=== PATIENT | female | born 1990 | race Caucasian/White ===

== ENCOUNTER → 2024-11-14 11:47 | Outpatient (CLI) | payer OTHER, SELFPAY ==
--- NOTE | 2024-11-14 11:49 | DI.US.S_ITS ---
PROCEDURE: US OB >= 14 WEEKS FETUS INDICATIONS: Anatomy US OUTSIDE/PRIOR DATING DATA: Last menstrual period (LMP): 07/04/24. LMP-based estimated date of delivery (JAYSHREE): 04/10/25. First dating scan (date and location): This study. Estimated date of delivery (JAYSHREE) from first dating scan: 04/15/25. The calculations are made using the most accurate JAYSHREE of 04/15/25. TECHNIQUE: Real-time scanning was performed of the fetus, with image documentation and biometric measurements. Endovaginal scanning: Not needed COMPARISON: None. FINDINGS: General: A single living intrauterine gestation is present. Presentation: Transverse head right. Placenta: Placental position is fundal , without previa. Amniotic fluid index: 11.4 cm, normal range is 5-24 cm. Single deepest vertical pocket is 3.8 cm. heart rate: 130 beats per minute. Maternal cervical canal: 3.8 cm long. Normal lower limit is 2.5 cm. biometrics: Biparietal diameter: 4.0 cm, 18 weeks 1 day Head circumference: 14.9 cm, 18 weeks 0 days Abdominal circumference: 12.4 cm, 18 weeks 0 days Femur length: 2.8 cm, 18 weeks 5 days Clinically estimated gestational age: 19 weeks 0 days Composite gestational age from present scan: 18 weeks 2 days Estimated weight and percentile: 233 g, 13th percentile Anatomic survey: Neuro: Ventricles are non-dilated at less than 10 mm. Cisterna magna is normal at 3-11 mm. Cerebellum is normal in size and morphology. Nuchal skin fold: Normal at less than 6 mm between 14-21 weeks gestational age. Face: Nose and lips, facial profile are normal. Spine: No evidence for spina bifida. Heart: 4-chambered heart is present, with normal ventricular outflow tracts. Diaphragm: Diaphragm is intact. Stomach: Left-sided stomach is present. Kidneys: No hydronephrosis. Normal is less than 5 mm in 2nd trimester, less than 7 mm in 3rd trimester. Cord: 3-vessel cord has orthotopic insertion. Bladder: Normal in size. Extremities: All 4 extremities identified. IMPRESSION: Single living intrauterine gestation with delivery date projected to be centered on 04/15/25. No anomaly seen. positioning currently is transverse, head right. Placental positioning is fundal and the amniotic fluid volume is normal. We strive to produce accurate, complete, and clear reports of imaging services. To assist us in improving patient care, this report was composed using standard report templates and voice recognition software. Therefore, it may contain abnormal punctuation, insertions and/or omissions. Occasional wrong-word or sound-alike substitutions may occur. Though we review the report and make efforts to correct it, we do recommend that the report be read carefully in proper context to recognize any text inaccuracies. Dictated by: Trino Limon M.D. on 11/15/2024 at 10:51 Approved by: Trino Limon M.D. on 11/15/2024 at 10:55
== END ==
LOC: US 11:48
PROVIDERS: Referring Provider Family Medicine; Visit Provider Family Medicine
DX: Z36.89 Encounter for other specified antenatal screening (principal); Z3A.18 18 weeks gestation of pregnancy
CPT/HCPCS: 76811

== ENCOUNTER → 2024-12-20 11:41 | Outpatient (CLI) | payer OTHER, SELFPAY ==
[2024-12-20 13:35] LABS: Hematocrit 30.0 % (36-46); Hemoglobin 10.6 g/dL (12.0-16.0); Mean Corpuscular HGB Conc 35.3 % (30-36); Mean Corpuscular Hemoglobin 31.0 PG (26-34); Mean Corpuscular Volume 87.8 fL (80-100); Platelet Count 200 X10^3/uL (150-400)
[2024-12-20 13:52] LABS: GTT (PREG) 1 Hour PP 50gm Dose 114 mg/dL (76-139)
== END ==
PROVIDERS: Referring Provider Family Medicine; Visit Provider Family Medicine
DX: Z34.80 Encounter for supervision of other normal pregnancy, unspecified trimester (principal)
CPT/HCPCS: 82950; 85027

== ENCOUNTER → 2025-01-29 16:47 | Outpatient (CLI) | payer OTHER, SELFPAY ==
--- NOTE | 2025-01-29 16:48 | DI.US.S_ITS ---
PROCEDURE: US OB LIMITED INDICATIONS: growth OUTSIDE/PRIOR DATING DATA: The calculations are made using the working JAYSHREE of 04/10/2025. TECHNIQUE: Real-time scanning was performed of the fetus, with image documentation and biometric measurements. Endovaginal scanning: Not performed COMPARISON: [facility], , OB >= 14 WEEKS FETUS, 11/14/2024, 12:14. FINDINGS: General: A single living intrauterine gestation is present. Presentation: Transverse. Placenta: Placental position is anterior/fundal , without previa. Amniotic fluid index: 23.8 cm, normal range is 5-24 cm. Single deepest vertical pocket is 6.8 cm. heart rate: 140 beats per minute. Maternal cervical canal: 4.2 cm long. Normal lower limit is 2.5 cm. biometrics: Biparietal diameter: 7.6 cm, 30 weeks 2 days Head circumference: 26.7 cm, 29 weeks 1 day Abdominal circumference: 24.2 cm, 20 weeks 3 days Femur length: 5.2 cm, 27 weeks 6 days Clinically estimated gestational age: 29 weeks 6 days Composite gestational age from present scan: 29 weeks 0 days Estimated weight and percentile: 1231 g, 6% Other: Not applicable. IMPRESSION: 1. Single live intrauterine consistent with 29 weeks and 0 days. 2. Estimated weight is in the 6 percentile concerning for macrosomia. Recommend short-term follow-up ultrasound. 3. Amniotic fluid index is at the upper limits of normal measuring 23.8 cm, recommend short-term follow-up ultrasound. We strive to produce accurate, complete, and clear reports of imaging services. To assist us in improving patient care, this report was composed using standard report templates and voice recognition software. Therefore, it may contain abnormal punctuation, insertions and/or omissions. Occasional wrong-word or sound-alike substitutions may occur. Though we review the report and make efforts to correct it, we do recommend that the report be read carefully in proper context to recognize any text inaccuracies. Dictated by: Marlon Werner M.D. on 01/30/2025 at 15:19 Approved by: Marlon Werner M.D. on 01/30/2025 at 15:32
== END ==
PROVIDERS: Referring Provider Family Medicine; Visit Provider Family Medicine
DX: Z34.83 Encounter for supervision of other normal pregnancy, third trimester (principal); Z3A.29 29 weeks gestation of pregnancy
CPT/HCPCS: 76815